=== PATIENT | female | born 1935 | race Caucasian/White ===

== ENCOUNTER 2019-09-15 05:13 | Inpatient (IN) ==
--- NOTE | 2019-09-08 15:28 | XRay Report ---
CLINICAL INFORMATION:Preoperative evaluation TECHNIQUE: PA and lateral upright chest x-ray COMPARISON: Previous examination dated 11/03/2018 FINDINGS:Prominent interstitial markings bilaterally. No focal pulmonary parenchymal infiltrate or mass. Heart size and vascularity are normal. No pulmonary edema or pulmonary congestion. Lexie and mediastinum are negative. There is no pleural fluid. There is exaggerated thoracic kyphosis. There is a midthoracic vertebral body compression deformity. This appearance is unchanged. There is mild thoracolumbar scoliosis IMPRESSION: 1. No interval change since 11/03/2018 2. No acute abnormality. Interpreted and Authenticated by: Akhil Cannon 09/08/19
[2019-09-08 19:08] LABS: Basophils # (Auto) 0 K/mcL (0.0-0.3); Basophils % (Auto) 0.6 % (0.0-2.0); Eosinophils # (Auto) 0.1 K/mcL (0.0-0.7); Eosinophils % (Auto) 2.3 % (0.0-7.0); Granulocytes % (Auto) 63.9 % (38.0-78.0); Hematocrit 47.2 % (36.0-48.0); Hemoglobin 15.1 g/dL (12.0-15.0); Lymphocytes # (Auto) 1.4 K/mcL (1.5-4.8); Lymphocytes % (Auto) 24.1 % (15.5-49.0); Mean Platelet Volume 7.7 fL (7.4-10.4); Monocytes # (Auto) 0.5 K/mcL (0.1-0.9); Monocytes % (Auto) 9.1 % (1.0-12.0); Platelet Count 335 K/mcL (140-440); RBC 4.97 M/mcL (4.00-5.20); Red Cell Distribution Width 14.1 % (11.5-14.5); WBC 5.6 K/mcL (4.5-11.0)
[2019-09-08 19:19] LABS: Estimated Average Glucose(eAG) 123 mg/dL; Hemoglobin A1C 5.9 % HGB (4.0-6.0)
[2019-09-08 19:30] LABS: Prothrombin Time 12.9 sec (11.9-14.5)
[2019-09-08 19:48] LABS: ALT/SGPT 14 U/l (0-40); AST/SGOT 22 U/l (0-37); Albumin 4.2 gm/dL (3.2-5.2); Albumin/Globulin Ratio 1.5 (1.0-2.3); Alkaline Phosphatase 58 U/L (39-117); Bilirubin,Total 0.5 mg/dL (0.0-1.0); Blood Urea Nitrogen 10 mg/dl (8-23); Calcium 9.8 mg/dl (8.6-10.4); Carbon Dioxide 24 mmol/L (22-30); Chloride 105 mmol/L (96-108); Globulin 2.8 gm/dL (2.2-3.7); Glomerular Filtration Rate 84; Glucose 95 mg/dL (70-105)
[~2019-09-15 05:13] MED LIST: IPRATROPIUM/ALBUTEROL 3 ML AMPUL.NEB NEB PRN; SCOPOLAMINE 1 PATCH PATCH TOPICAL PRN
[2019-09-15] MEDS ORDERED: ceFAZolin 2 GM in DEXTROSE 5% IN WATER 50 ML IV SCH (07:00)
[2019-09-15] MEDS ORDERED: MAGNESIUM SULFATE 2 GM/50 ML BAG IV ONE ×2 (07:08→10:02)
[2019-09-15] MEDS ORDERED: LIDOCAINE HCL/PF 100 MG/5 ML SYRINGE IV ONE (07:40)
[2019-09-15] MEDS ORDERED: DEXAMETHASONE 4 MG/ML VIAL IV ONE (07:40)
[2019-09-15] MEDS ORDERED: GLYCOPYRROLATE 0.2 MG/ML VIAL IV ONE (07:40)
[2019-09-15] MEDS ORDERED: PROPOFOL 200 MG/20 ML VIAL IV ONE (07:40)
[2019-09-15] MEDS ORDERED: ONDANSETRON 4 MG/2 ML VIAL IV ONE (07:40)
[2019-09-15] MEDS ORDERED: SUGAMMADEX SODIUM 200 MG/2 ML VIAL IV ONE (07:40)
[2019-09-15] MEDS ORDERED: ePHEDrine 50 MG/ML AMPUL IV ONE (07:40)
[2019-09-15] MEDS ORDERED: NALBUPHINE 10 MG/ML AMPUL IV ONE (07:40)
[2019-09-15] MEDS ORDERED: ROPIVACAINE HCL/PF 20 ML VIAL IJ ONE (07:40)
[2019-09-15] MEDS ORDERED: KETAMINE 100 MG/ML ML IV ONE (07:40)
[2019-09-15] MEDS ORDERED: SUCCINYLCHOLINE 20 MG/ML ML IV ONE (07:40)
[2019-09-15] MEDS ORDERED: fentaNYL 100 MCG/2 ML VIAL IV ONE (07:40)
--- NOTE | 2019-09-15 08:40 | Brief Operative Note ---
Date of procedure: 09/15/19 Pre-op diagnosis: LEFT OVARIAN MASS Post-op diagnosis: other (LEFT OVARIAN MASS) Procedure: LAPAROTOMY WITH LEFT SALPINGO OOPHORECTOMY Grafts/Implants: No Anesthesia: GETA Findings: VERY LARGE ,HARD MASS OF LEFT OVARY NO OTHER LESIONS NOTED Complications: none Surgeon: Stephanie Martinez Estimated blood loss (cc): 20 Specimens Removed/Pathology: other (OVARIAN MASS) Disposition: PACU
[2019-09-15] MEDS ORDERED: ACETAMINOPHEN 1,000 MG/100 ML BOTTLE IV ONE (09:04)
[2019-09-15] MEDS ORDERED: KETOROLAC 15 MG/ML VIAL IV PRN (09:04)
[2019-09-15] MEDS ORDERED: METHOCARBAMOL 1,000 MG/10 ML VIAL IV PRN (09:04)
[2019-09-15] MEDS ORDERED: MEPERIDINE 25 MG/ML SYRINGE IV PRN (09:04)
[2019-09-15] MEDS ORDERED: NALOXONE HCL 0.4 MG/ML VIAL IV PRN (09:04)
[2019-09-15] MEDS ORDERED: ONDANSETRON 4 MG/2 ML VIAL IV PRN ×2 (09:04→10:02)
[2019-09-15] MEDS ORDERED: LABETALOL 5 MG/ML ML IV PRN (09:04)
[2019-09-15] MEDS ORDERED: IPRATROPIUM/ALBUTEROL 3 ML AMPUL.NEB NEB PRN (09:04)
[2019-09-15] MEDS ORDERED: LACTATED RINGERS 250 ML IV PRN (09:04)
[2019-09-15] MEDS ORDERED: METOPROLOL TARTRATE 5 MG/5 ML VIAL IV PRN (09:04)
[2019-09-15] MEDS ORDERED: fentaNYL 100 MCG/2 ML VIAL IV PRN (09:04)
[2019-09-15] MEDS ORDERED: BENZOCAINE/MENTHOL 1 LOZENGE PO PRN (09:04)
[2019-09-15] MEDS ORDERED: LACTATED RINGERS 1,000 ML IV SCH (09:15)
[2019-09-15] MEDS ORDERED: ONDANSETRON 4 MG ODT TABLET SL PRN (10:02)
[2019-09-15] MEDS ORDERED: PROMETHAZINE 25 MG/ML VIAL IV PRN (10:02)
[2019-09-15] MEDS: 0.9 % SODIUM CHLORIDE 1,000 ML IV SCH ×2 (10:16→23:01)
[2019-09-15] MEDS: HYDROmorphone 2 MG/ML VIAL IV PRN (13:22)
[2019-09-15] MEDS: 0.9 % SODIUM CHLORIDE 10 ML SYRINGE IV SCH ×2 (13:22→23:01)
[2019-09-15] MEDS: ACETAMINOPHEN 1,000 MG/100 ML BOTTLE IV SCH ×2 (14:19→22:08)
[2019-09-15] MEDS ORDERED: diphenhydrAMINE 25 MG CAPSULE PO PRN (14:47)
[2019-09-16] MEDS: ACETAMINOPHEN 1,000 MG/100 ML BOTTLE IV SCH ×2 (03:51→10:25)
[2019-09-16] MEDS: 0.9 % SODIUM CHLORIDE 10 ML SYRINGE IV SCH ×3 (04:00→21:48)
[2019-09-16 06:35] LABS: Basophils # (Auto) 0 K/mcL (0.0-0.3); Basophils % (Auto) 0.1 % (0.0-2.0); Eosinophils # (Auto) 0 K/mcL (0.0-0.7); Eosinophils % (Auto) 0.1 % (0.0-7.0); Granulocytes % (Auto) 76.1 % (38.0-78.0); Hematocrit 38.8 % (36.0-48.0); Hemoglobin 12.7 g/dL (12.0-15.0); Lymphocytes # (Auto) 1.2 K/mcL (1.5-4.8); Lymphocytes % (Auto) 13.4 % (15.5-49.0); Mean Cell Volume 94.4 fL (80.0-100.0); Mean Corpuscular HGB Conc 32.7 g/dL (31.0-36.0); Mean Platelet Volume 7.5 fL (7.4-10.4); Monocytes # (Auto) 0.9 K/mcL (0.1-0.9); Monocytes % (Auto) 10.3 % (1.0-12.0); Platelet Count 292 K/mcL (140-440); RBC 4.11 M/mcL (4.00-5.20); Red Cell Distribution Width 13.7 % (11.5-14.5); WBC 9.2 K/mcL (4.5-11.0)
[2019-09-16 07:17] LABS: ALT/SGPT 9 U/l (0-40); AST/SGOT 16 U/l (0-37); Albumin 3.5 gm/dL (3.2-5.2); Alkaline Phosphatase 42 U/L (39-117); Bilirubin,Direct < 0.2 mg/dL (0.0-0.3); Bilirubin,Total 0.5 mg/dL (0.0-1.0); Blood Urea Nitrogen 8 mg/dl (8-23); Carbon Dioxide 24 mmol/L (22-30); Chloride 106 mmol/L (96-108); Glomerular Filtration Rate 84; Glucose 87 mg/dL (70-105); Lactate Dehydrogenase 181 U/L (94-250); Phosphorous 2.7 mg/dL (2.7-4.5); Triglycerides 43 mg/dl (<150)
[2019-09-16 07:20] LABS: Albumin/Globulin Ratio 2.1 (1.0-2.3); Calcium 7.6 mg/dl (8.6-10.4); Globulin 1.7 gm/dL (2.2-3.7)
[2019-09-16] MEDS: HYDROmorphone 2 MG/ML VIAL IV PRN ×5 (08:31→21:48)
[2019-09-16] MEDS: 0.9 % SODIUM CHLORIDE 1,000 ML IV SCH (14:07)
--- NOTE | 2019-09-16 16:46 | General Surgery Progress Note ---
Subjective Patient reports: pain is less, no flatus, afebrile Narrative: Note initiated : 09/16/19 at 4:44 pm Service Date, if different from initiated Date: [] Patient: Genoveva Giles 84 y/o F admitted on 09/15/19 for Exploratory Laparotomy with Excision of . Chief Complaint: [] Patient is stable. Her pain is controlled. She denies nausea. She's had small amount of flatus. There is no distention. Objective Temp Pulse Resp BP Pulse Ox 98.5 F 79 12 122/65 97 09/16/19 12:00 09/16/19 12:00 09/16/19 12:00 09/16/19 12:00 09/16/19 12:00 - Additional Data Intake & Output - Last 24 hours: Intake & Output 09/14/19 09/15/19 09/16/19 09/17/19 05:59 05:59 05:59 05:59 Intake Total 3403 1100 Output Total 1625 Balance 1778 1100 Weight 138 lb 6.4 oz 140 lb 4.8 oz 140 lb 4.8 oz - General physical appearance well developed, well nourished, moderate distress, moderate pain - Eyes PERRL, normal ocular movement - ENT normal pinna, normal nares, normal mucosa, no hearing loss, no congestion - Neck no masses, no bruits, trachea midline, no lymphadenopathy, no venous distension - Respiratory normal expansion, normal respiratory effort, clear to auscultation - Cardiovascular Cardiovascular exam: Present: normal rate and rhythm, RRR, +S1, +S2. Absent: JVD, tachycardia - Abdomen distended (mild distention; good active bowel sounds) - Integumentary no rash, no growths, no abnormal pigmentation - Neurologic normal coordination, normal sensation - Musculoskeletal normal gait, normal posture - Psychiatric oriented to time, oriented to person, oriented to place, speech is normal, memory intact - Labs 09/16/19 05:10 09/16/19 05:10 Diabetes panel 09/16/19 Range/Units 05:10 Sodium 139 (133-145) mmol/L Potassium 3.9 (3.3-5.1) mmol/L Chloride 106 (96-108) mmol/L Carbon Dioxide 24 (22-30) mmol/L BUN 8 (8-23) mg/dl Creatinine 0.6 (0.6-1.1) mg/dl Glucose 87 (70-105) mg/dL Calcium 7.6 L (8.6-10.4) mg/dl AST 16 (0-37) U/l ALT 9 (0-40) U/l Alkaline Phosphatase 42 (39-117) U/L Total Protein 5.2 L (5.9-8.4) gm/dL Albumin 3.5 (3.2-5.2) gm/dL Triglycerides 43 (<150) mg/dl Calcium panel 09/16/19 Range/Units 05:10 Calcium 7.6 L (8.6-10.4) mg/dl Phosphorus 2.7 (2.7-4.5) mg/dL Albumin 3.5 (3.2-5.2) gm/dL Pituitary panel 09/16/19 Range/Units 05:10 Sodium 139 (133-145) mmol/L Potassium 3.9 (3.3-5.1) mmol/L Chloride 106 (96-108) mmol/L Carbon Dioxide 24 (22-30) mmol/L BUN 8 (8-23) mg/dl Creatinine 0.6 (0.6-1.1) mg/dl Glucose 87 (70-105) mg/dL Calcium 7.6 L (8.6-10.4) mg/dl Adrenal panel 09/16/19 Range/Units 05:10 Sodium 139 (133-145) mmol/L Potassium 3.9 (3.3-5.1) mmol/L Chloride 106 (96-108) mmol/L Carbon Dioxide 24 (22-30) mmol/L BUN 8 (8-23) mg/dl Creatinine 0.6 (0.6-1.1) mg/dl Glucose 87 (70-105) mg/dL Calcium 7.6 L (8.6-10.4) mg/dl Total Bilirubin 0.5 (0.0-1.0) mg/dL AST 16 (0-37) U/l ALT 9 (0-40) U/l Alkaline Phosphatase 42 (39-117) U/L Total Protein 5.2 L (5.9-8.4) gm/dL Albumin 3.5 (3.2-5.2) gm/dL Assessment and Plan (1) Ovarian mass, left Status: Acute Assessment and plan: Continue present therapy. Discontinue nasogastric tube. Discontinue Boyd catheter in the a.m. Check labs in the a.m. Current Visit: Yes (2) Hypertension Status: Chronic Current Visit: No - Time Spent With Patient Total time spent is greater than 50% in coordination of care (as documented) at patient's floor/unit and/or counseling patient:
[2019-09-17] MEDS: 0.9 % SODIUM CHLORIDE 1,000 ML IV SCH (03:28)
[2019-09-17] MEDS: 0.9 % SODIUM CHLORIDE 10 ML SYRINGE IV SCH ×3 (04:39→21:15)
[2019-09-17 05:30] LABS: Basophils # (Auto) 0 K/mcL (0.0-0.3); Basophils % (Auto) 0.2 % (0.0-2.0); Eosinophils # (Auto) 0 K/mcL (0.0-0.7); Eosinophils % (Auto) 0.7 % (0.0-7.0); Granulocytes % (Auto) 74.5 % (38.0-78.0); Hematocrit 41.9 % (36.0-48.0); Hemoglobin 13.9 g/dL (12.0-15.0); Lymphocytes # (Auto) 1.1 K/mcL (1.5-4.8); Lymphocytes % (Auto) 15.1 % (15.5-49.0); Mean Cell Volume 94.2 fL (80.0-100.0); Mean Corpuscular HGB Conc 33.2 g/dL (31.0-36.0); Mean Platelet Volume 7.3 fL (7.4-10.4); Monocytes # (Auto) 0.7 K/mcL (0.1-0.9); Monocytes % (Auto) 9.5 % (1.0-12.0); Platelet Count 293 K/mcL (140-440); RBC 4.45 M/mcL (4.00-5.20); Red Cell Distribution Width 14.2 % (11.5-14.5)
[2019-09-17 06:05] LABS: ALT/SGPT 10 U/l (0-40); AST/SGOT 17 U/l (0-37); Albumin 3.5 gm/dL (3.2-5.2); Albumin/Globulin Ratio 1.6 (1.0-2.3); Alkaline Phosphatase 48 U/L (39-117); Bilirubin,Direct < 0.2 mg/dL (0.0-0.3); Bilirubin,Total 0.4 mg/dL (0.0-1.0); Calcium 7.8 mg/dl (8.6-10.4); Carbon Dioxide 21 mmol/L (22-30); Chloride 107 mmol/L (96-108); Globulin 2.2 gm/dL (2.2-3.7); Glomerular Filtration Rate 89; Glucose 83 mg/dL (70-105); Lactate Dehydrogenase 202 U/L (94-250); Triglycerides 58 mg/dl (<150); Uric Acid 3.9 mg/dL (2.5-8.0)
[2019-09-17 06:09] LABS: Blood Urea Nitrogen 5 mg/dl (8-23); Phosphorous 1.3 mg/dL (2.7-4.5)
[2019-09-17] MEDS: HYDROmorphone 2 MG/ML VIAL IV PRN (13:17)
[2019-09-17] MEDS: POTASSIUM PHOSPHATE 40 MEQ in DEXTROSE 5% IN WATER 500 ML IV SCH ×2 (13:44→18:15)
--- NOTE | 2019-09-17 13:57 | General Surgery Progress Note ---
Subjective Patient reports: feels better, pain is less, tolerating liquids well, no flatus, no bowel movement, afebrile Narrative: Note initiated : 09/17/19 at 1:54 pm Service Date, if different from initiated Date: [] Patient: Genoveva Giles 84 y/o F admitted on 09/15/19 for Exploratory Laparotomy with Excision of . Chief Complaint: [patient is stable. She is tolerating clear liquids but has not passed flatus or bowel movement yet. She has mild abdominal distention. She denies nausea. White blood count 7, hemoglobin 13.9, hematocrit 41.5, BUN 5, creatinine 0.5, was 1.3.] Objective Temp Pulse Resp BP Pulse Ox 98.7 F 99 H 16 146/79 95 09/17/19 12:00 09/17/19 12:00 09/17/19 12:00 09/17/19 12:00 09/17/19 12:00 - Additional Data Intake & Output - Last 24 hours: Intake & Output 09/15/19 09/16/19 09/17/19 09/18/19 05:59 05:59 05:59 05:59 Intake Total 3403 3260 Output Total 1625 1200 Balance 1778 2060 Weight 138 lb 6.4 oz 140 lb 4.8 oz 149 lb - General physical appearance well developed, well nourished, no distress - Eyes PERRL, normal ocular movement - ENT normal pinna, normal nares, normal mucosa, no hearing loss, no congestion - Neck no masses, no bruits, trachea midline, no lymphadenopathy, no venous distension - Respiratory normal expansion, normal respiratory effort, clear to auscultation - Cardiovascular Cardiovascular exam: Present: normal rate and rhythm, RRR, +S1, +S2. Absent: JVD, tachycardia - Abdomen tender (, mild incisional), bowel sounds ( good, active bowels), surgical scars (mild bloody drainage of incision but no evidence of inflammation), masses (none) - Integumentary no rash, no growths, no abnormal pigmentation - Neurologic normal coordination, normal sensation - Psychiatric oriented to time, oriented to person, oriented to place, speech is normal, memory intact - Labs 09/17/19 04:10 09/17/19 04:20 Diabetes panel 09/17/19 Range/Units 04:20 Sodium 139 (133-145) mmol/L Potassium 3.5 (3.3-5.1) mmol/L Chloride 107 (96-108) mmol/L Carbon Dioxide 21 L (22-30) mmol/L BUN 5 L (8-23) mg/dl Creatinine 0.5 L (0.6-1.1) mg/dl Glucose 83 (70-105) mg/dL Calcium 7.8 L (8.6-10.4) mg/dl AST 17 (0-37) U/l ALT 10 (0-40) U/l Alkaline Phosphatase 48 (39-117) U/L Total Protein 5.7 L (5.9-8.4) gm/dL Albumin 3.5 (3.2-5.2) gm/dL Triglycerides 58 (<150) mg/dl Calcium panel 09/17/19 Range/Units 04:20 Calcium 7.8 L (8.6-10.4) mg/dl Phosphorus 1.3 L (2.7-4.5) mg/dL Albumin 3.5 (3.2-5.2) gm/dL Pituitary panel 09/17/19 Range/Units 04:20 Sodium 139 (133-145) mmol/L Potassium 3.5 (3.3-5.1) mmol/L Chloride 107 (96-108) mmol/L Carbon Dioxide 21 L (22-30) mmol/L BUN 5 L (8-23) mg/dl Creatinine 0.5 L (0.6-1.1) mg/dl Glucose 83 (70-105) mg/dL Calcium 7.8 L (8.6-10.4) mg/dl Adrenal panel 09/17/19 Range/Units 04:20 Sodium 139 (133-145) mmol/L Potassium 3.5 (3.3-5.1) mmol/L Chloride 107 (96-108) mmol/L Carbon Dioxide 21 L (22-30) mmol/L BUN 5 L (8-23) mg/dl Creatinine 0.5 L (0.6-1.1) mg/dl Glucose 83 (70-105) mg/dL Calcium 7.8 L (8.6-10.4) mg/dl Total Bilirubin 0.4 (0.0-1.0) mg/dL AST 17 (0-37) U/l ALT 10 (0-40) U/l Alkaline Phosphatase 48 (39-117) U/L Total Protein 5.7 L (5.9-8.4) gm/dL Albumin 3.5 (3.2-5.2) gm/dL Assessment and Plan (1) Ovarian mass, left Status: Acute Assessment and plan: Continue present therapy. Check labs in the a.m. Full liquid diet. Potassium phosphate replacement Current Visit: Yes (2) Hypertension Status: Chronic Assessment and plan: Hold antihypertensives another day before starting Current Visit: No - Time Spent With Patient Total time spent is greater than 50% in coordination of care (as documented) at patient's floor/unit and/or counseling patient:
[2019-09-18] MEDS: 0.9 % SODIUM CHLORIDE 1,000 ML IV SCH ×3 (00:53→18:07)
[2019-09-18] MEDS: 0.9 % SODIUM CHLORIDE 10 ML SYRINGE IV SCH ×3 (05:14→21:33)
[2019-09-18 06:31] LABS: Basophils # (Auto) 0 K/mcL (0.0-0.3); Basophils % (Auto) 0.3 % (0.0-2.0); Eosinophils # (Auto) 0.1 K/mcL (0.0-0.7); Eosinophils % (Auto) 1.9 % (0.0-7.0); Granulocytes % (Auto) 71.9 % (38.0-78.0); Hematocrit 40.9 % (36.0-48.0); Hemoglobin 13.4 g/dL (12.0-15.0); Lymphocytes # (Auto) 0.8 K/mcL (1.5-4.8); Lymphocytes % (Auto) 13.6 % (15.5-49.0); Mean Cell Volume 94.9 fL (80.0-100.0); Mean Corpuscular HGB Conc 32.8 g/dL (31.0-36.0); Mean Platelet Volume 7.4 fL (7.4-10.4); Monocytes # (Auto) 0.8 K/mcL (0.1-0.9); Monocytes % (Auto) 12.3 % (1.0-12.0); Platelet Count 288 K/mcL (140-440); RBC 4.31 M/mcL (4.00-5.20); Red Cell Distribution Width 14.4 % (11.5-14.5); WBC 6.2 K/mcL (4.5-11.0)
[2019-09-18 07:02] LABS: ALT/SGPT 8 U/l (0-40); AST/SGOT 14 U/l (0-37); Albumin 3.1 gm/dL (3.2-5.2); Albumin/Globulin Ratio 1.3 (1.0-2.3); Alkaline Phosphatase 47 U/L (39-117); Bilirubin,Direct < 0.2 mg/dL (0.0-0.3); Bilirubin,Total 0.4 mg/dL (0.0-1.0); Blood Urea Nitrogen 4 mg/dl (8-23); Calcium 7.7 mg/dl (8.6-10.4); Carbon Dioxide 22 mmol/L (22-30); Chloride 106 mmol/L (96-108); Globulin 2.4 gm/dL (2.2-3.7); Glomerular Filtration Rate 96; Glucose 104 mg/dL (70-105); Lactate Dehydrogenase 213 U/L (94-250); Triglycerides 63 mg/dl (<150); Uric Acid 3.3 mg/dL (2.5-8.0)
[2019-09-18 07:26] LABS: Phosphorous 1.7 mg/dL (2.7-4.5)
[2019-09-18] MEDS ORDERED: MAGNESIUM CITRATE 300 ML ORAL.SOL PO ONE ×2 (12:53→18:08)
--- NOTE | 2019-09-18 12:57 | General Surgery Progress Note ---
Subjective Patient reports: feels better, pain is less, flatus, no bowel movement, afebrile Narrative: Note initiated : 09/18/19 at 12:55 pm Service Date, if different from initiated Date: [] Patient: Genoveva Giles 84 y/o F admitted on 09/15/19 for Exploratory Laparotomy with Excision of . Chief Complaint: [patient is stable and gradually improving. She does have a small amount of flatus but no bowel movement. Her pain is well controlled. White blood count 6.2, hemoglobin 13.4, hematocrit 40.9, phosphorus 1.7.] Objective Temp Pulse Resp BP Pulse Ox 97.8 F 71 20 171/79 95 09/18/19 11:08 09/18/19 11:08 09/18/19 11:08 09/18/19 11:08 09/18/19 11:08 - Additional Data Intake & Output - Last 24 hours: Intake & Output 09/16/19 09/17/19 09/18/19 09/19/19 05:59 05:59 05:59 05:59 Intake Total 3403 3260 2908.0909 240 Output Total 1625 1200 1901 1200 Balance 1778 2060 1007.0909 -960 Weight 140 lb 4.8 oz 149 lb 144 lb 14.4 oz - General physical appearance well developed, well nourished, no distress - Eyes PERRL, normal ocular movement - ENT normal pinna, normal nares, normal mucosa, no hearing loss, no congestion - Neck no masses, no bruits, trachea midline, no lymphadenopathy, no venous distension - Respiratory normal expansion, normal respiratory effort, clear to auscultation - Cardiovascular Cardiovascular exam: Present: normal rate and rhythm, RRR, +S1, +S2. Absent: JVD, tachycardia - Abdomen tender (mild incisional tenderness; good active bowel sounds; , mild abdominal distention) - Integumentary no rash, no growths, no abnormal pigmentation - Neurologic normal coordination, normal sensation - Musculoskeletal normal gait, normal posture - Psychiatric oriented to time, oriented to person, oriented to place, speech is normal, memory intact - Labs 09/18/19 04:30 09/18/19 04:30 Diabetes panel 09/18/19 Range/Units 04:30 Sodium 139 (133-145) mmol/L Potassium 3.8 (3.3-5.1) mmol/L Chloride 106 (96-108) mmol/L Carbon Dioxide 22 (22-30) mmol/L BUN 4 L (8-23) mg/dl Creatinine 0.4 L (0.6-1.1) mg/dl Glucose 104 (70-105) mg/dL Calcium 7.7 L (8.6-10.4) mg/dl AST 14 (0-37) U/l ALT 8 (0-40) U/l Alkaline Phosphatase 47 (39-117) U/L Total Protein 5.5 L (5.9-8.4) gm/dL Albumin 3.1 L (3.2-5.2) gm/dL Triglycerides 63 (<150) mg/dl Calcium panel 09/18/19 Range/Units 04:30 Calcium 7.7 L (8.6-10.4) mg/dl Phosphorus 1.7 L (2.7-4.5) mg/dL Albumin 3.1 L (3.2-5.2) gm/dL Pituitary panel 09/18/19 Range/Units 04:30 Sodium 139 (133-145) mmol/L Potassium 3.8 (3.3-5.1) mmol/L Chloride 106 (96-108) mmol/L Carbon Dioxide 22 (22-30) mmol/L BUN 4 L (8-23) mg/dl Creatinine 0.4 L (0.6-1.1) mg/dl Glucose 104 (70-105) mg/dL Calcium 7.7 L (8.6-10.4) mg/dl Adrenal panel 09/18/19 Range/Units 04:30 Sodium 139 (133-145) mmol/L Potassium 3.8 (3.3-5.1) mmol/L Chloride 106 (96-108) mmol/L Carbon Dioxide 22 (22-30) mmol/L BUN 4 L (8-23) mg/dl Creatinine 0.4 L (0.6-1.1) mg/dl Glucose 104 (70-105) mg/dL Calcium 7.7 L (8.6-10.4) mg/dl Total Bilirubin 0.4 (0.0-1.0) mg/dL AST 14 (0-37) U/l ALT 8 (0-40) U/l Alkaline Phosphatase 47 (39-117) U/L Total Protein 5.5 L (5.9-8.4) gm/dL Albumin 3.1 L (3.2-5.2) gm/dL Assessment and Plan (1) Ovarian mass, left Status: Resolved Assessment and plan: Continue present therapy. Check labs in the a.m. Full liquid diet. Potassium phosphate replacement Current Visit: Yes (2) Hypertension Status: Chronic Assessment and plan: Hold antihypertensives another day before starting Current Visit: No - Time Spent With Patient Total time spent is greater than 50% in coordination of care (as documented) at patient's floor/unit and/or counseling patient:
[2019-09-18] MEDS: POTASSIUM PHOSPHATE 40 MEQ in DEXTROSE 5% IN WATER 500 ML IV SCH ×2 (13:45→18:07)
[2019-09-19 06:17] LABS: Basophils # (Auto) 0 K/mcL (0.0-0.3); Basophils % (Auto) 0.4 % (0.0-2.0); Eosinophils # (Auto) 0.4 K/mcL (0.0-0.7); Eosinophils % (Auto) 8.3 % (0.0-7.0); Granulocytes % (Auto) 54.5 % (38.0-78.0); Hematocrit 41.5 % (36.0-48.0); Hemoglobin 13.5 g/dL (12.0-15.0); Lymphocytes # (Auto) 1.3 K/mcL (1.5-4.8); Lymphocytes % (Auto) 23.2 % (15.5-49.0); Mean Cell Volume 94.7 fL (80.0-100.0); Mean Corpuscular HGB Conc 32.5 g/dL (31.0-36.0); Mean Platelet Volume 7.3 fL (7.4-10.4); Monocytes # (Auto) 0.7 K/mcL (0.1-0.9); Monocytes % (Auto) 13.6 % (1.0-12.0); Platelet Count 293 K/mcL (140-440); RBC 4.38 M/mcL (4.00-5.20); Red Cell Distribution Width 14.3 % (11.5-14.5); WBC 5.4 K/mcL (4.5-11.0)
[2019-09-19] MEDS: 0.9 % SODIUM CHLORIDE 10 ML SYRINGE IV SCH ×4 (06:17→20:37)
[2019-09-19] MEDS: 0.9 % SODIUM CHLORIDE 1,000 ML IV SCH (13:19)
--- NOTE | 2019-09-19 14:35 | General Surgery Progress Note ---
Subjective Patient reports: no new complaints, feels better, pain is less, tolerating liquids well, flatus, afebrile Narrative: Note initiated : 09/19/19 at 2:33 pm Service Date, if different from initiated Date: [] Patient: Genoveva Giles 84 y/o F admitted on 09/15/19 for Exploratory Laparotomy with Excision of . Chief Complaint: [patient appears to be stable. She had multiple bowel movements last evening. She still has mild distention. She is tolerating her liquids. White blood count 5.4, hematocrit 41.5, phosphorus 1.7, potassium 3.8] Objective Temp Pulse Resp BP Pulse Ox 98.6 F 90 20 168/75 97 09/19/19 12:00 09/19/19 12:00 09/19/19 12:00 09/19/19 12:00 09/19/19 12:00 - Additional Data Intake & Output - Last 24 hours: Intake & Output 09/17/19 09/18/19 09/19/19 09/20/19 05:59 05:59 05:59 05:59 Intake Total 3260 2908.0909 2299 1920 Output Total 1200 1901 2100 1375 Balance 2060 1007.0909 199 545 Weight 149 lb 144 lb 14.4 oz 141 lb 6.4 oz - General physical appearance well developed, well nourished, no distress - Eyes PERRL, normal ocular movement - ENT normal pinna, normal nares, normal mucosa, no hearing loss, no congestion - Neck no masses, no bruits, trachea midline, no lymphadenopathy, no venous distension - Respiratory normal expansion, normal respiratory effort, clear to auscultation - Cardiovascular Cardiovascular exam: Present: normal rate and rhythm, RRR, +S1, +S2. Absent: JVD, tachycardia - Abdomen non tender, bowel sounds (present), surgical scars (none), masses (none), distended - Integumentary no rash, no growths, no abnormal pigmentation - Neurologic normal coordination, normal sensation - Musculoskeletal normal gait, normal posture - Psychiatric oriented to time, oriented to person, oriented to place, speech is normal, memory intact - Labs 09/19/19 04:30 09/18/19 04:30 Assessment and Plan (1) Ovarian mass, left Status: Resolved Assessment and plan: Continue present therapy. Check labs in the a.m.. Potassium phosphate replacement Advanced to soft diet . Saline lock IV Current Visit: Yes (2) Hypertension Status: Chronic Assessment and plan: Hold antihypertensives another day before starting Current Visit: No - Time Spent With Patient Total time spent is greater than 50% in coordination of care (as documented) at patient's floor/unit and/or counseling patient:
[2019-09-20] MEDS: 0.9 % SODIUM CHLORIDE 10 ML SYRINGE IV SCH (05:25)
--- NOTE | 2019-09-20 13:28 | Discharge Summary ---
Providers - Providers Patient information: Note initiated : 09/20/19 at 1:24 pm Service Date, if different from initiated Date: [] Patient: Genoveva Giles 84 y/o F admitted on 09/15/19 for Exploratory Laparotomy with Excision of . Chief Complaint: [] Date of admission: 09/15/19 Discharge date: 09/20/19 Attending physician: Stephanie Martinez Hospitalization Hospital Course: 84-year-old female with a large pelvic mass arising from the left ovary. She underwent pelvic laparotomy with salpingo-oophorectomy on 15 September. The mass appeared to be as solid, hard mass without any evidence of metastatic disease. The pathology is not available as of this dictation. 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 The patient had a postoperative ileus and her hospitalization was prolonged because of this. She is now doing well and is tolerating diet without difficulty. She is having regular bowel movements and is discharged home in stable satisfactory condition. Discharge diagnosis: left ovarian mass Secondary discharge diagnosis: Postoperative ileus Reason for admission: postoperative management Procedures: Pelvic laparotomy with resection of pelvic mass Pertinent studies/significant findings: None Complications: None Exam Temp Pulse Resp BP Pulse Ox 99.3 F H 84 18 163/82 97 09/20/19 12:00 09/20/19 12:00 09/20/19 12:00 09/20/19 12:00 09/20/19 12:00 - General physical appearance well developed, well nourished, no distress - Eyes PERRL, normal ocular movement - ENT normal pinna, normal nares, normal mucosa, no hearing loss, no congestion - Head Head exam IM: Present: atraumatic, normocephalic - Neck no masses, no bruits, trachea midline, no lymphadenopathy, no venous distension - Cardiovascular Cardiovascular exam IM: Present: normal rate and rhythm - Respiratory normal expansion, normal respiratory effort, clear to percussion, clear to auscultation - Abdomen Abdomen: Present: soft, tender ( tenderness of incision; good active bowel sounds), bowel sounds, distended (moderate abdominal distention) Hernia: Present: none - Genitourinary Present: normal external genitalia - Integumentary Present: no rash, no growths, no abnormal pigmentation - Neurologic Present: normal coordination, normal sensation - Musculoskeletal Present: normal gait, normal posture - Psychiatric Present: oriented to time, oriented to person, oriented to place, speech is normal, memory intact Discharge Plan - Patient/Caregiver Discharge Instructions Activity: increase activity as tolerated Diet: Regular Diet - Follow up Plan Disposition: Home, Self-Care Prognosis: Good Rehab Potential: Good I certify that the patient requires SNF services.: No Overall status at discharge: patient is progressing back to baseline Pending Studies Resuscitation Status Full Code Diet GI Soft/Transitional Start [place] Sep 19 1617 Hydromorphone HCl (Dilaudid) 0.5 mg IV Q2HP PRN; Protocol PRN Reason: Per Pain Protocol Last Admin: 09/17/19 13:17 Dose: 0.5 mg Documented by: Admin: 09/16/19 21:48 Dose: 0.5 ml Documented by: Admin: 09/16/19 17:25 Dose: 0.5 ml Documented by: Admin: 09/16/19 13:51 Dose: 0.5 ml Documented by: Admin: 09/16/19 11:45 Dose: 0.5 ml Documented by: Admin: 09/16/19 08:31 Dose: 0.5 ml Documented by: Admin: 09/15/19 13:22 Dose: 0.5 ml Documented by: VEL Sodium Chloride (Saline Flush) 10 ml IV Q8 SHELLI Last Admin: 09/20/19 05:25 Dose: 10 ml Documented by: Admin: 09/19/19 20:37 Dose: Not Given Documented by: Admin: 09/19/19 19:53 Dose: 10 ml Documented by: Admin: 09/19/19 14:09 Dose: Not Given Documented by: Admin: 09/19/19 06:17 Dose: Not Given Documented by: Admin: 09/18/19 21:33 Dose: Not Given Documented by: Admin: 09/18/19 17:35 Dose: Not Given Documented by: Admin: 09/18/19 05:14 Dose: Not Given Documented by: Admin: 09/17/19 21:15 Dose: Not Given Documented by: Admin: 09/17/19 16:44 Dose: Not Given Documented by: Admin: 09/17/19 04:39 Dose: Not Given Documented by: Admin: 09/16/19 21:48 Dose: Not Given Documented by: Admin: 09/16/19 18:05 Dose: Not Given Documented by: Admin: 09/16/19 04:00 Dose: 10 ml Documented by: Admin: 09/15/19 23:01 Dose: 10 ml Documented by: Admin: 09/15/19 13:22 Dose: 10 ml Documented by: VEL Shift Summary 09/20/19 02:57 Shift Summary by Joelle Bro 09/15/19 PT returned for OR at 0940 post removal of ovarian mass and fallopian tube. Midline incision CDI, well approximated with tori and minimal serosanguineous drainage with tegaderm dressing. Pt has a 16g SL to the L. wrist and an 18g to the R. wrist that has NS @75ml/hr. Pt has NG connected to low intermittent suction with no drainage collected yet. Boyd catheter placed to gravity draining pale, yellow urine. SCDs in place with no c/o pain or discomfort. IV dilaudid 0.5mg given for 3/10 pain and scheduled IV ofimev controlling pain very well. PT A&Ox4 and able to make needs known. Pt resting at this time, will update at bedside. 09/19/19 Pt is up with SBA to the BR and walked in halls a few times today. Still a little weak from surgery. Midline abdominal incision with tori, dried blood under Tegaderm dressing. IV to Right arm SL. Having loose BMs today. No pain medication needed. Planning for DC home tomorrow. 09/20/19 No change midline incision. Up with SBA. BM's have slowed down. No pain medication this shift. Tolerated soft diet last evening. Plans for DC today. Will update with verbal report Initialized on 09/20/19 02:57 - END OF NOTE
--- NOTE | 2019-09-20 13:39 | Surgical Pathology Report ---
HISTOLOGY SPECIMEN MICROSCOPIC DIAGNOSIS OVARY AND FALLOPIAN TUBE, LEFT, SALPINGO-OOPHORECTOMY: -- OVARY: FIBROMA, SEE COMMENT. - NO MALIGNANT FEATURES IDENTIFIED. -- FALLOPIAN TUBE: NO DIAGNOSTIC ALTERATIONS. (RLF:cande) COMMENT: The ovary shows a spindle cell proliferation composed of moderately cellular regions interspersed with hypocellular foci and occasional dilated delicate vasculature. No mitotic figures, cytologic atypia or necrosis are identified. 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 CLINICAL HISTORY Large left ovarian mass. GROSS DESCRIPTION Received in formalin labeled left ovarian mass, is a firm atkins-idehl possible ovary that weighs 473 grams and measures 11 x 11.3 x 6.9 cm. There is an attached fallopian tube with fimbriated end that measures 3.2 x 1.1 x 0.9 cm; no gross tubal lesions are identified. The external surface of the specimen is inked black. Sectioning through the possible ovary reveals firm yellow-diehl tissue and a 8.7 x 4 x 3.5 cm cavity. Cut surfaces are firm and yellow-diehl. Business Support sections are submitted in twelve cassettes: A1-A3 - shared services representative sections of fallopian tube; A4-A12 - sections of ovary. (SCB:cande) Electronically Signed by: Mattie Caceres M.D.
[2019-09-20] MEDS ORDERED: ACETAMINOPHEN 325 MG TABLET PO ONE (13:57)
--- NOTE | 2019-09-21 09:01 | Operative Note ---
DATE OF OPERATION: 09/15/2019 PREOPERATIVE DIAGNOSIS: Left ovarian mass. POSTOPERATIVE DIAGNOSIS: Left ovarian mass. PROCEDURE: Pelvic laparotomy with left salpingo-oophorectomy. SURGEON: Stephanie Martinez M.D. FINDINGS: Very large, hard mass of the left ovary with attachments to the small bowel, rectum and omentum. DESCRIPTION OF PROCEDURE: Under general anesthesia, the patient's abdomen was prepped and draped in a sterile field. Timeout procedure was carried out as per protocol. Lower midline incision was made. There was a small amount of fluid in the peritoneal cavity. The upper abdomen was packed off and a large hard mass was noted. It was grasped and delivered into the operative field. There were dense adhesions from the omentum and colon which were taken down using primarily electrocautery. This dissection was carried out until it was only attached by the tubo-ovarian pedicle. The tubo-ovarian pedicle was doubly clamped and divided and the mass was passed off. The pedicle was tied with two ligatures of 2-0 silk. Irrigation was carried out. No drain was needed. This appeared to be a benign mass. There was no peritoneal studding and there was no thickening of the omentum. Sponge, needle, instrument and blade counts were verified as correct. Fascia and peritoneum were closed with running locking #1 Prolene. Subcutaneous tissue was closed with 2-0 Monocryl. Skin was closed with tori. The patient tolerated the procedure well. Tegaderm dressing was placed. She was awakened, transferred to a bed, and taken to the postanesthetic care unit in stable, satisfactory condition. LCS:lily Job ID: [id number] Doc ID: [id number] Stephanie Martinez M.D.
== END 2019-09-20 14:00 | disposition home or self-care (01) | DRG 742 ==
LOC: MEDSUR 05:13
PROVIDERS: ADMIT Family Medicine Adult Medicine; ATTEND Family Medicine Adult Medicine